=== PATIENT | female | born 1945 | race Caucasian/White ===

== ENCOUNTER → 2019-09-14 | Outpatient (CLI) | payer OTHER ==
[~2019-09-14] MED LIST: ALPHA LIPOIC A600 M1 PO; ASPIR 8181 M1 PO; ASPIR-TRIN325 MG PO; ATORVASTATIN CA40 MG PO; CHROMIUM200 MCG PO; EFFIENT10 MG PO; GLUCOSAMINE HC500 MG PO; LISINOPRIL5 MG PO; MAGOX 400400 MG PO; MSM-GLUCOSAMIN1 EACH PO; NEPHROCAPS SOFT1 CAP PO; NIACIN FLUSH F400 MG PO; NIACOR500 MG PO; NITROGLYCERIN0.4 MG SUBLING; RED YEAST RICE600 MG PO; TOPROL XL25 MG PO; TOPROL XL50 MG PO; TURMERIC500 MG PO
== END ==
LOC: M.CT 08-29 16:11
PROVIDERS: ATTEND Registered Nurse Diabetes Educator
DX: I65.21 Occlusion and stenosis of right carotid artery (principal); E11.9 Type 2 diabetes mellitus without complications; I10 Essential (primary) hypertension; R26.89 Other abnormalities of gait and mobility; R53.1 Weakness; R51 Headache

== ENCOUNTER → 2020-07-29 | Outpatient (CLI) | payer OTHER | LOC: M.RAD 09:38 | PROVIDERS: ATTEND Internal Medicine | DX: M47.816 Spondylosis without myelopathy or radiculopathy, lumbar region (principal); M48.061 Spinal stenosis, lumbar region without neurogenic claudication; M54.5 Low back pain ==

== ENCOUNTER 2021-02-10 11:52 | Inpatient (IN) | payer OTHER ==
[~2021-02-10] VITALS: Ht 162.6 cm; Wt 93.2 kg
[2021-02-10 12:10] VITALS: BP 133/50
[2021-02-10] MEDS ORDERED: ZETIA10 MG PO (12:19)
[2021-02-10 12:35] LABS: HEMOGLOBIN 13.3 gm/dL (12.0-15.0); WBC 11.1 thou/uL (4.0-11.0)
[2021-02-10 12:37] LABS: HEMATOCRIT 39.5 % (37.0-47.0); MCH 32.1 pg (26.0-34.0); MCHC 33.7 g/dL (28.0-37.0); MCV 95.3 fL (80.0-100.0); MPV 7.7 fl. (7.2-11.1); NUCLEATED RBCS 0 /100WBC; PLATELET COUNT* 213 thou/uL (150-400); RBC 4.14 mil/uL (4.20-5.00); RDW-CV 13.6 % (10.5-14.5)
[2021-02-10 12:51] LABS: CALCIUM 8.2 mg/dL (8.5-10.1); CREATININE 0.8 mg/dL (0.6-1.3); POTASSIUM 4.4 mmol/L (3.5-5.1)
--- NOTE | 2021-02-10 12:55 | EKG ---
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: [facility] : 1945 Requested By: George Carl Order Number: [id number] MD: Reilly Skinner Measurements Intervals [place] Rate: 83 P: 0 PA: 164 QRS: -19 QRSD: 92 T: -25 QT: 383 QTc: 450 Interpretive Statements Sinus rhythm artifact noted Borderline left axis deviation Low voltage, precordial leads Nonspecific repol abnormality, diffuse leads Compared to ECG 08/08/2014 07:36:05 no change Electronically Signed On 02-10-2021 12:55:26 CONVEYOR LOADER by Reilly Skinner [email or web address] <ELECTRONICALLY SIGNED> By: Reilly Skinner MD, FAC 02/10/21 1255 1220 1220 Reilly Skinner MD, [facility] /EPI
[2021-02-10 13:02] LABS: ALBUMIN 2.8 g/dL (3.4-5.0); TOTAL BILIRUBIN 0.5 mg/dL (<0.1-1.0); TOTAL PROTEIN 7.4 g/dL (6.4-8.2)
[2021-02-10 13:24] LABS: ABSOLUTE LYMPHOCYTES 1.6 thou/uL (0.8-5.3); ABSOLUTE MONOCYTES 1.6 thou/uL (0.0-1.2); PLATELET ESTIMATE ADEQUATE
[2021-02-10 16:35] VITALS: BP 138/80
--- NOTE | 2021-02-10 18:18 | NUR ---
PT'S REQUESTS SON TO BE REACHED AT [phone] FOR UPDATES
[2021-02-10 20:35] VITALS: BP 136/79
[2021-02-10 21:00] VITALS: BP 140/63
[2021-02-10] MEDS ORDERED: GLIPIZIDE 10 MG10 MG PO (21:25)
[2021-02-11 01:53] LABS: URINE BILIRUBIN NEGATIVE (Negative); URINE BLOOD 1+ (Negative); URINE CLARITY CLEAR; URINE COLOR YELLOW; URINE GLUCOSE-RANDOM 3+ (Negative); URINE KETONES NEGATIVE (Negative); URINE LEUKOCYTES NEGATIVE (Negative); URINE NITRITE NEGATIVE (Negative); URINE PROTEIN 1+ (Negative); URINE UROBILINOGEN 0.2 E.U./dl (0.2-1.0)
--- NOTE | 2021-02-11 01:59 | NUR ---
ASSUMED CARE OF PT AT 2100 FROM THE ER. PT IS ALERT AND ORIENTED. VSS. PERRLA. NO COMPLAINTS OF PAIN. PT IS ON 75 PERCENT HEATED HIGH FLOW. PT IS VERY UNSTABLE ON HER FEET. PT IS IN SINUS RYTHM ON THE TELEMETRY. PT IS RESTING COMFORTABLY IN BED. RESPIRATIONS ARE EVEN AND NONLABORED. WILL CONTINUE TO MONITOR PT.
[2021-02-11 04:00] VITALS: BP 111/40
[2021-02-11 05:00] LABS: COARSE GRANULAR CASTS 0-3 Few /LPF (None Seen); SQUAMOUS 4-10 Moderate /LPF (0-3)
[2021-02-11 05:01] LABS: BACTERIA None Seen /HPF (None Seen); CRYSTALS None Seen /LPF (None Seen); URINE RBC None Seen /HPF (0-2); URINE WBC 0-5 Rare /HPF (0-5)
[2021-02-11 05:58] LABS: HEMATOCRIT 35.5 % (37.0-47.0); HEMOGLOBIN 11.9 gm/dL (12.0-15.0); MCHC 33.7 g/dL (28.0-37.0); MPV 7.8 fl. (7.2-11.1); RBC 3.74 mil/uL (4.20-5.00); RDW-CV 13.4 % (10.5-14.5); WBC 10.3 thou/uL (4.0-11.0)
[2021-02-11 06:30] LABS: ALBUMIN 2.4 g/dL (3.4-5.0); CALCIUM 8.2 mg/dL (8.5-10.1); CREATININE 0.7 mg/dL (0.6-1.3); MAGNESIUM 2.4 mg/dL (1.8-2.4); POTASSIUM 4.3 mmol/L (3.5-5.1); TOTAL BILIRUBIN 0.3 mg/dL (<0.1-1.0); TOTAL PROTEIN 6.6 g/dL (6.4-8.2)
[2021-02-11 08:00] VITALS: BP 113/52
[2021-02-11 12:11] VITALS: BP 119/46
--- NOTE | 2021-02-11 13:15 | NUR ---
The patient is alert. SB on the monitor. 50% heated high flow. Up with assist to BSC. Call light within reach. Diet changed to Carb Control. Up with assistance.
--- NOTE | 2021-02-11 13:26 | 2DMMODE ---
[place] [address] 2 D/M-MODE ECHOCARDIOGRAM Name: SALTERJAISON Room: [address] IN [facility]#: [id number] Admission: 02/10/21 Attend Phys: Carina Mckenzie, Discharge: Date of : 41 Date of Service: 02/11/21 1326 Report #: [id number] THIS REPORT FOR: cc: Nba Hayden MD, Meng MD Liston, Michael J. MD [facility] ~ APPROVED REPORT Study performed: 02/11/2021 09:38:05 EXAM: Comprehensive 2D, Doppler, and color-flow Echocardiogram Patient Location: In-Patient Room #: [facility] Status: routine BSA: 1.96 HR: 56 bpm BP: 111/40 mmHg Rhythm: NSR Other Information Study Quality: Good Indications resp failure 2D Dimensions IVSd: 11.02 (7-11mm) LVOT Diam: 19.51 (18-24mm) LVDd: 47.97 mm PWd: 10.14 (7-11mm) Ascending Ao: 32.49 (22-36mm) LVDs: 27.41 (25-40mm) Aortic Root: 27.84 mm Volumes Left Atrial Volume (Systole) LA ESV Index: 29.10 mL/m2 Aortic Valve AoV Peak Delbert.: 1.88 m/s AO Peak Gr.: 14.17 mmHg LVOT Max P.81 mmHg AO Mean Gr.: 8.44 mmHg LVOT Mean P.02 mmHg LVOT Max V: 1.10 m/s AO V2 VTI: 47.35 cm LVOT Mean V: 0.64 m/s ANNETTA (VTI): 1.74 cm2 LVOT V1 VTI: 27.61 [place] [address] 2 D/M-MODE ECHOCARDIOGRAM Name: JAISON SALTER Room: [address] IN ..#: [id number] Admission: 02/10/21 Attend Phys: Carina Mckenzie, Discharge: Date of : 41 Date of Service: 02/11/21 1326 Report #: [id number] Mitral Valve E/A Ratio: 1.00 MV Decel. Time: 242.42 ms MV E Max Delbert.: 1.19 m/s MV PHT: 70.30 ms MVA (PHT): 3.13 cm2 TDI Medial E' Delbert.: 0.08 m/s Lateral E' Delbert.: 0.08 m/s Pulmonary Valve PV Peak Delbert.: 0.87 m/s PV Peak Gr.: 3.03 mmHg Left Ventricle The left ventricle is normal size. There is normal LV segmental wall motion. There is normal left ventricular wall thickness. Left ventricular systolic function is normal. LVEF is 60-65%. Transmitral Doppler flow pattern suggests impaired LV relaxation. Right Ventricle The right ventricle is normal size. The right ventricular systolic function is normal. Atria The left atrium size is normal. The right atrium size is normal. Aortic Valve Mild aortic valve sclerosis. No aortic regurgitation is present. Mild aortic stenosis. Mitral Valve The mitral valve is normal in structure. Mild mitral regurgitation. No evidence of mitral valve stenosis. Tricuspid Valve The tricuspid valve is normal in structure. Unable to assess PA pressure. Trace tricuspid regurgitation. Pulmonic Valve The pulmonary valve is normal in structure. There is no pulmonic valvular regurgitation. Great Vessels The aortic root is normal in size. IVC [place] [address] 2 D/M-MODE ECHOCARDIOGRAM Name: JAISON SALTER Room: [address]#: [id number] Admission: 02/10/21 Attend Phys: Carina Mckenzie, Discharge: Date of : 41 Date of Service: 02/11/21 1326 Report #: [id number] collapses >50% with inspiration. Pericardium There is no pericardial effusion. <Conclusion> The left ventricle is normal size. There is normal left ventricular wall thickness. Left ventricular systolic function is normal. LVEF is 60-65%. Transmitral Doppler flow pattern suggests impaired LV relaxation. Mild aortic valve sclerosis. Mild aortic stenosis. Mild mitral regurgitation. IVC is normal in size and collapses >50% with inspiration. <ELECTRONICALLY SIGNED> By: Navi Ibarra MD, FACC 02/11/211325 25 25 Navi Ibarra MD, FACC /INF
--- NOTE | 2021-02-11 14:14 | CON ---
[address] [address] CONSULTATION Name: JAISON SALTER Room: [address] IN .R.#: [id number] Admission: 02/10/21 Attend Phys: Carina Mckenzie MD Discharge: Date of : 41 Report #: [id number] THIS REPORT FOR: cc: Nba Hayden MD, Meng MD Pervez, Adeel MD ~ DATE OF CONSULTATION: 02/11/[address] Mckenzie. INDICATION FOR CONSULTATION: Acute hypoxemic respiratory failure secondary to COVID-19. HISTORY OF PRESENT ILLNESS: This is a 75-year-old female, past medical history includes a history of coronary artery disease as well as diabetes. She has coronary artery stent. I do not see any mention of congestive heart failure on the record. I do not have recent measure of her left ventricular ejection fraction available. The patient is reported to be a lifetime nonsmoker. She is reported to have had 2 doses of COVID-19 vaccine, she says around October and November. The patient is now admitted with acute respiratory complaints of short of breath. His coughing has been of small amount of sputum. Mild swelling of lower extremities, has had nasal congestion as well as headache as well. Currently, is requiring 75% FiO2 with a heated high-flow nasal cannula to maintain O2 saturations. She reports having had fever and chills as well as weakness and poor appetite recently. The patient, however, is sitting comfortably on side of bed and does not appear to be in any distress at this time. REVIEW OF SYSTEMS: For 12 points is negative except as mentioned above. PAST MEDICAL HISTORY: Coronary artery disease status post stent, diabetes, neuropathy, osteoarthritis, hypertension, hysterectomy. SOCIAL HISTORY: Lifetime nonsmoker. No known history of heavy alcohol use or illegal drug use. CURRENT MEDICATIONS: List in [facility] reviewed. HOME MEDICATIONS: List in [facility] reviewed. ALLERGIES: CODEINE. PHYSICAL EXAMINATION: [place] [address] CONSULTATION Name: JAISON SALTER Room: [address] IN [facility]#: [id number] Admission: 02/10/21 Attend Phys: Carina Mckenzie MD Discharge: Date of : 41 Report #: [id number] GENERAL: Alert, awake and oriented. VITAL SIGNS: Pulse 56, blood pressure 119/46. She is on 75% FiO2, O2 saturation mid 90s on a heated high-flow nasal cannula, afebrile. HEENT: Head is normocephalic and atraumatic. NECK: Does not show raised JVP. CHEST: Breath sounds bilaterally equal. No added sounds. HEART: Regular. No murmur. ABDOMEN: Soft, nontender. EXTREMITIES: Lower extremities, 1+ edema, no calf tenderness. LABORATORY DATA: Lab work and x-rays are in [facility] and these are reviewed. ASSESSMENT AND PLAN: 1. Acute hypoxemic respiratory failure secondary to COVID-19. Continue to titrate oxygen. She may have underlying obstructive sleep apnea. We will have a low threshold of using BiPAP. In case her respiratory status declines, avoid supine sleep. 2. COVID-19. Agree with dexamethasone as well as remdesivir, dexamethasone dose is increased. 3. Pulmonary infiltrates. Agree with ceftriaxone and doxycycline. More cultures and serologies are ordered. 4. Bronchospasm. She reported to have wheezing earlier. Heart rate now on the lower side. Therefore, I switched nebulized bronchodilators over to DuoNeb. 5. Diabetes. I would expect a rise in glucose. Therefore, I have for now increased the insulin sliding scale to moderate dose, may need more insulin. 6. Evaluation for thromboembolic phenomena. CTA chest is awaited. We will do venous Dopplers as well. In addition, we will do a 2D echo. 7. Mild fluid overload. Considering that she will be getting IV dye today, I did not order Lasix. We will reassess tomorrow and consider. 8. Deep venous thrombosis prophylaxis. The patient currently is on 60 mg of Lovenox at bedtime. Thromboembolic workup as above. We will then review Lovenox dose. 9. Gastrointestinal prophylaxis, Protonix. 10. Clostridium difficile prophylaxis, Lactinex. Thanks for this consultation. <ELECTRONICALLY SIGNED> By: Gustavo Cordova MD 02/11/21 1414 1149 1240Gustavo Cordova MD /nt
--- NOTE | 2021-02-11 14:18 | NUR ---
CM ASSESSMENT CALLS TO PT ROOM UNANSWERED. ASSESSMENT COMPLETED VIA PHONE WITH PT'S (KAYLA SALTER [phone]). PT LIVES AT HOME WITH . PT HAS FLIGHT OF STAIRS IN HOME, BUT ONLY UTILIZES THE GROUND FLOOR. PT USES A CANE ON OCCASION. PT INDEPENDENT WITH ADLS. PT'S UNCLEAR IF PT EVER WENT TO REHAB OR SKILLED. PT HAS NO HH HX. CM TO FOLLOW.
[2021-02-11 16:04] VITALS: BP 135/66
[2021-02-11 20:30] VITALS: BP 142/56
[2021-02-12] VITALS: BP 135/57
--- NOTE | 2021-02-12 05:08 | NUR ---
PT C/O INSOMNIA SINCE 02-09-21. PT WAS GIVEN DIPHENHYDRAMINE PRESCRIBED. PT REPORTED "TAKING A SMALL NAP AND THEN WOKE UP." PER MEDICATION ORDER A SECOND DOSE OF DIPHENHYDRAMINE WAS ADMINISTERED. PT WAS PROVIDED WITH A DARK AND QUIET ENVIRONMENT W/ MINIMAL INTERUPTIONS. PT WAS ABLE TO SLEEP MOST OF THE LATTER MORNING. NO ACUTE CHANGES THIS SHIFT. WILL CONT. TO MONITOR.
[2021-02-12 06:00] VITALS: BP 132/62
[2021-02-12 06:30] LABS: ABSOLUTE LYMPHOCYTES 0.7 thou/uL (0.8-5.3); ABSOLUTE MONOCYTES 0.9 thou/uL (0.0-1.2); ABSOLUTE NEUTROPHILS 13.6 thou/uL (1.6-8.1); BASOPHILS 0.2 %; HEMATOCRIT 36.6 % (37.0-47.0); LYMPHOCYTES 4.7 %; MCH 31.4 pg (26.0-34.0); MCHC 32.7 g/dL (28.0-37.0); MCV 96.1 fL (80.0-100.0); MPV 8.5 fl. (7.2-11.1); NUCLEATED RBCS 0 /100WBC; PLATELET COUNT* 246 thou/uL (150-400); POLYS 89.1 %; RBC 3.81 mil/uL (4.20-5.00); RDW-CV 13.2 % (10.5-14.5); WBC 15.2 thou/uL (4.0-11.0)
[2021-02-12 06:39] LABS: ALBUMIN 2.4 g/dL (3.4-5.0); CALCIUM 8.4 mg/dL (8.5-10.1); CREATININE 0.7 mg/dL (0.6-1.3); MAGNESIUM 2.5 mg/dL (1.8-2.4); POTASSIUM 4.5 mmol/L (3.5-5.1); TOTAL BILIRUBIN 0.2 mg/dL (<0.1-1.0); TOTAL PROTEIN 6.5 g/dL (6.4-8.2)
[2021-02-12 08:00] VITALS: BP 138/60
[2021-02-12 13:30] VITALS: BP 147/73
--- NOTE | 2021-02-12 15:07 | NUR ---
CM FOLLOWUP PT NOT MEDICALLY CLEAR. PT WITH INCREASING O2 NEEDS. PT DECLINING REFERRAL TO SKILLED OR REHAB SERVICES. PT REQUESTING REFERRAL FOR HH WITH PT AND OT SERVICES. CM TO FOLLOW.
[2021-02-12 17:06] VITALS: BP 139/56
[2021-02-12 20:00] VITALS: BP 135/55
[2021-02-13] VITALS: BP 145/51
[2021-02-13 04:36] VITALS: BP 130/58
[2021-02-13 05:03] LABS: HEMATOCRIT 37.1 % (37.0-47.0); HEMOGLOBIN 12.2 gm/dL (12.0-15.0); MCH 31.6 pg (26.0-34.0); MCHC 32.9 g/dL (28.0-37.0); MPV 8.2 fl. (7.2-11.1); RBC 3.86 mil/uL (4.20-5.00); RDW-CV 12.9 % (10.5-14.5); WBC 13.1 thou/uL (4.0-11.0)
--- NOTE | 2021-02-13 05:08 | NUR ---
ASSUMED PT CARE AT APPROX 1930. PT IS AWAKE AND ORIENTED X4. PT IS TRACING SR/SB ON THE PLASTIC TILE SETTER. PT IS ON 55L OF O2/75% FIO2 VIA HEATED HIGHFLOW NASAL CANNULA.PT IS STILL SHORT OF BRREATH AND DESATURATES TO THE UPPER 80s WITH ACTIVITY. NO ACUTE CHANGES OVERNIGHT. PT IS ABLE TO REST MOST OF THE NIGHT. CALL LIGHT WITHIN REACH. HOURLY ROUNDING DONE FOR PT SAFETY. FALL PRECAUTIONS IN PLACE.
[2021-02-13 06:18] LABS: ALBUMIN 2.4 g/dL (3.4-5.0); CALCIUM 8.5 mg/dL (8.5-10.1); CREATININE 0.7 mg/dL (0.6-1.3); MAGNESIUM 2.5 mg/dL (1.8-2.4); POTASSIUM 4.9 mmol/L (3.5-5.1); TOTAL BILIRUBIN 0.2 mg/dL (<0.1-1.0); TOTAL PROTEIN 6.4 g/dL (6.4-8.2)
[2021-02-13 08:00] VITALS: BP 145/83
[2021-02-13 12:00] VITALS: BP 156/55
--- NOTE | 2021-02-13 14:18 | NUR ---
CM FOLLOWUP PT NOT YET MEDICALLY CLEAR. UPON CLEARANCE, THE PLAN IS FOR PT TO DC HOME WITH SPOUSE WITH HH SERVICES. HH AGENCY PENDING. CM TO FOLLOW.
[2021-02-13 16:00] VITALS: BP 135/56
[2021-02-13 20:15] VITALS: BP 146/58
[2021-02-14] VITALS: BP 131/45
[2021-02-14 04:00] VITALS: BP 158/52
[2021-02-14 04:00] LABS: HEMATOCRIT 38.4 % (37.0-47.0); HEMOGLOBIN 12.7 gm/dL (12.0-15.0); MCH 31.4 pg (26.0-34.0); MCHC 33.1 g/dL (28.0-37.0); MCV 94.7 fL (80.0-100.0); MPV 8.2 fl. (7.2-11.1); RBC 4.06 mil/uL (4.20-5.00); RDW-CV 12.7 % (10.5-14.5); WBC 13.3 thou/uL (4.0-11.0)
[2021-02-14 04:43] LABS: ALBUMIN 2.5 g/dL (3.4-5.0); CALCIUM 8.5 mg/dL (8.5-10.1); CREATININE 0.7 mg/dL (0.6-1.3); MAGNESIUM 2.4 mg/dL (1.8-2.4); POTASSIUM 4.6 mmol/L (3.5-5.1); TOTAL BILIRUBIN 0.2 mg/dL (<0.1-1.0); TOTAL PROTEIN 6.4 g/dL (6.4-8.2)
--- NOTE | 2021-02-14 05:29 | NUR ---
PT AO X4 ON HHF PER NC 50L AT 75% SATTING APPROPRIATELY OVERNIIGHT. RT FOOT IS BRUISED BETWEEN 1-2 TOES WITH NO COMPLAINT OF PAIN. PT TO BSC INDEPENDENTLY WITHOUT ISSUE. PT MAKES NEEDS KNOWN WITH HOURLY ROUNDING, CALL LIGHT IN REACH FOR PT SAFETY
--- NOTE | 2021-02-14 07:20 | NUR ---
CHANGE OF SHIFT REPORT GIVEN PATIENT SEEN AT BEDSIDE, IN BED ASLEEP ASSUMED PATIENT CARE
[2021-02-14 08:00] VITALS: BP 130/62
[2021-02-14 12:45] VITALS: BP 153/76
--- NOTE | 2021-02-14 15:59 | NUR ---
patient transferred to 210 verbal report given to too hill patient and belongigns transferred via bed family notified of transfer
--- NOTE | 2021-02-14 18:50 | NUR ---
CM FOLLOWUP PT OUT OF ISOLATION, BUT NOT YET MED CLEAR. PT EXPECTED TO REMAIN AT [facility] TH[facility]OUGH [place]. WHEN CLEAR, PT TO DC HOME WITH HH VIA [place] [phone]. CM TO FOLLOW.
--- NOTE | 2021-02-14 20:08 | NUR ---
ASSUMED CARE OF TRANSFER PT AROUND 1630 FROM [facility]. CONCUR WITH DOCUMENTED ASSESSMENTS BY ABOVE NURSE. CALL LIGHT AND PERSONAL BELONGINGS PLACED WITHIN REACH. PT. IN BED, WATCHING TV, IN STABLE CONDITION, AT SHIFT CHANGE.
[2021-02-14 20:15] VITALS: BP 137/62
[2021-02-15] VITALS: BP 146/55
[2021-02-15 04:00] VITALS: BP 131/38
[2021-02-15 04:49] LABS: HEMATOCRIT 39.8 % (37.0-47.0); HEMOGLOBIN 13.3 gm/dL (12.0-15.0); MCH 31.3 pg (26.0-34.0); MCHC 33.4 g/dL (28.0-37.0); MCV 93.7 fL (80.0-100.0); MPV 8.3 fl. (7.2-11.1); NUCLEATED RBCS 0 /100WBC; PLATELET COUNT* 323 thou/uL (150-400); RBC 4.25 mil/uL (4.20-5.00); RDW-CV 12.8 % (10.5-14.5); WBC 14.7 thou/uL (4.0-11.0)
[2021-02-15 05:03] LABS: ALBUMIN 2.7 g/dL (3.4-5.0); CALCIUM 8.6 mg/dL (8.5-10.1); CREATININE 0.8 mg/dL (0.6-1.3); POTASSIUM 3.9 mmol/L (3.5-5.1); TOTAL BILIRUBIN 0.3 mg/dL (<0.1-1.0); TOTAL PROTEIN 6.8 g/dL (6.4-8.2)
[2021-02-15 06:25] LABS: ABSOLUTE LYMPHOCYTES 1.9 thou/uL (0.8-5.3); ABSOLUTE MONOCYTES 0.9 thou/uL (0.0-1.2); ABSOLUTE NEUTROPHILS 11.9 thou/uL (1.6-8.1); METAMYELOCYTES 2 %
[2021-02-15 06:26] LABS: PLATELET ESTIMATE ADEQUATE
[2021-02-15 09:00] VITALS: BP 117/47
[2021-02-15 12:00] VITALS: BP 140/57
[2021-02-15 16:00] VITALS: BP 151/72
[2021-02-15 20:04] VITALS: BP 140/66
[2021-02-16 00:30] VITALS: BP 149/63
[2021-02-16 04:00] VITALS: BP 158/58
[2021-02-16 05:10] LABS: ABSOLUTE BASOPHILS 0.1 thou/uL (0.0-0.2); ABSOLUTE LYMPHOCYTES 0.9 thou/uL (0.8-5.3); ABSOLUTE NEUTROPHILS 14.4 thou/uL (1.6-8.1); BASOPHILS 0.7 %; HEMATOCRIT 41.6 % (37.0-47.0); LYMPHOCYTES 5.5 %; MCH 31.6 pg (26.0-34.0); MCHC 33.5 g/dL (28.0-37.0); MCV 94.1 fL (80.0-100.0); NUCLEATED RBCS 0 /100WBC; PLATELET COUNT* 345 thou/uL (150-400); POLYS 87.8 %; RBC 4.42 mil/uL (4.20-5.00); RDW-CV 12.7 % (10.5-14.5); WBC 16.4 thou/uL (4.0-11.0)
[2021-02-16 05:42] LABS: ALBUMIN 2.8 g/dL (3.4-5.0); CALCIUM 8.5 mg/dL (8.5-10.1); CREATININE 0.8 mg/dL (0.6-1.3); MAGNESIUM 2.3 mg/dL (1.8-2.4); POTASSIUM 4.2 mmol/L (3.5-5.1); TOTAL BILIRUBIN 0.4 mg/dL (<0.1-1.0); TOTAL PROTEIN 6.9 g/dL (6.4-8.2)
[2021-02-16 09:00] VITALS: BP 139/64
[2021-02-16 12:00] VITALS: BP 144/67
[2021-02-16 16:00] VITALS: BP 139/61
[2021-02-16 20:20] VITALS: BP 164/62
[2021-02-17 04:27] LABS: ABSOLUTE BASOPHILS 0.2 thou/uL (0.0-0.2); ABSOLUTE LYMPHOCYTES 0.9 thou/uL (0.8-5.3); ABSOLUTE MONOCYTES 1.2 thou/uL (0.0-1.2); ABSOLUTE NEUTROPHILS 14.1 thou/uL (1.6-8.1); BASOPHILS 1.2 %; HEMATOCRIT 41.3 % (37.0-47.0); HEMOGLOBIN 13.6 gm/dL (12.0-15.0); LYMPHOCYTES 5.2 %; MCH 31.2 pg (26.0-34.0); MCHC 32.9 g/dL (28.0-37.0); MCV 94.9 fL (80.0-100.0); MONOCYTES 7.1 %; MPV 8.6 fl. (7.2-11.1); NUCLEATED RBCS 0 /100WBC; PLATELET COUNT* 311 thou/uL (150-400); POLYS 86.5 %; RBC 4.35 mil/uL (4.20-5.00); RDW-CV 12.8 % (10.5-14.5); WBC 16.3 thou/uL (4.0-11.0)
[2021-02-17 04:45] LABS: CALCIUM 8.3 mg/dL (8.5-10.1); CREATININE 0.7 mg/dL (0.6-1.3); MAGNESIUM 2.4 mg/dL (1.8-2.4); POTASSIUM 4.3 mmol/L (3.5-5.1)
[2021-02-17 05:49] VITALS: BP 131/64
[2021-02-17 08:43] VITALS: BP 135/64
[2021-02-17 12:00] VITALS: BP 133/51
[2021-02-17 16:00] VITALS: BP 127/54
--- NOTE | 2021-02-17 17:14 | NUR ---
PLAN OF CARE: PLAN REMAINS FOR THE PT TO D/C HOME WITH HH WHEN MEDICALLY STABLE. PT REMAINS IN 15L O2 AT THIS TIME, AND MAY NEED HOME O2 AT D/C. CM WILL REMAIN AVAILABLE TO ASSIST AND FOLLOW NEEDED.
--- NOTE | 2021-02-17 18:46 | NUR ---
TITRATED FROM 15L HFNC TO 8L THIS SHIFT. ABLE TO AMBULATE TO COMMODE BY SELF. PT PERFORMED INCENTIVE SPIROMETER 10X/HR AFTER EDUCATION.
[2021-02-17 20:23] VITALS: BP 140/85
[2021-02-18 00:43] VITALS: BP 136/62
[2021-02-18 04:23] LABS: PLATELET COUNT* 282 thou/uL (150-400); WBC 15.9 thou/uL (4.0-11.0)
[2021-02-18 04:30] LABS: HEMATOCRIT 39.8 % (37.0-47.0); HEMOGLOBIN 13.1 gm/dL (12.0-15.0); MCH 31.5 pg (26.0-34.0); MCHC 32.9 g/dL (28.0-37.0); MCV 95.8 fL (80.0-100.0); MPV 8.4 fl. (7.2-11.1); NUCLEATED RBCS 0 /100WBC; RBC 4.16 mil/uL (4.20-5.00); RDW-CV 12.9 % (10.5-14.5)
[2021-02-18 04:38] LABS: ALBUMIN 2.5 g/dL (3.4-5.0); CALCIUM 8.3 mg/dL (8.5-10.1); CREATININE 0.8 mg/dL (0.6-1.3); POTASSIUM 4.3 mmol/L (3.5-5.1); TOTAL BILIRUBIN 0.3 mg/dL (<0.1-1.0); TOTAL PROTEIN 6.1 g/dL (6.4-8.2)
[2021-02-18 04:40] VITALS: BP 146/54
[2021-02-18 05:49] LABS: ABSOLUTE LYMPHOCYTES 1.1 thou/uL (0.8-5.3); ABSOLUTE MONOCYTES 2.4 thou/uL (0.0-1.2); ABSOLUTE NEUTROPHILS 12.4 thou/uL (1.6-8.1); PLATELET ESTIMATE ADEQUATE
[2021-02-18 08:00] VITALS: BP 140/54
[2021-02-18 11:34] VITALS: BP 113/58
[2021-02-18 16:10] VITALS: BP 129/55
[2021-02-18 20:00] VITALS: BP 137/57
[2021-02-19] VITALS: BP 159/61
[2021-02-19 04:00] VITALS: BP 152/57
[2021-02-19 04:43] LABS: ABSOLUTE LYMPHOCYTES 0.9 thou/uL (0.8-5.3); ABSOLUTE MONOCYTES 1.1 thou/uL (0.0-1.2); ABSOLUTE NEUTROPHILS 12.4 thou/uL (1.6-8.1); BASOPHILS 0.1 %; HEMOGLOBIN 13.6 gm/dL (12.0-15.0); LYMPHOCYTES 6.1 %; MCH 31.4 pg (26.0-34.0); MCHC 32.3 g/dL (28.0-37.0); MCV 97.3 fL (80.0-100.0); MONOCYTES 7.7 %; MPV 8.6 fl. (7.2-11.1); NUCLEATED RBCS 0 /100WBC; PLATELET COUNT* 253 thou/uL (150-400); POLYS 86.1 %; RBC 4.32 mil/uL (4.20-5.00); RDW-CV 13.3 % (10.5-14.5); WBC 14.4 thou/uL (4.0-11.0)
[2021-02-19 05:01] LABS: ALBUMIN 2.6 g/dL (3.4-5.0); CALCIUM 8.3 mg/dL (8.5-10.1); CREATININE 0.6 mg/dL (0.6-1.3); MAGNESIUM 2.6 mg/dL (1.8-2.4); PHOSPHORUS* 4.4 mg/dL (2.5-4.9); POTASSIUM 4.2 mmol/L (3.5-5.1); TOTAL BILIRUBIN 0.4 mg/dL (<0.1-1.0); TOTAL PROTEIN 6.2 g/dL (6.4-8.2)
[2021-02-19 08:00] VITALS: BP 106/45
--- NOTE | 2021-02-19 10:15 | NUR ---
PLAN OF CARE:
--- NOTE | 2021-02-19 10:24 | NUR ---
PLAN OF CARE: PLAN REMAINS FOR THE PT TO D/C HOME WITH HH WITH [facility] WHEN PT MEDICALLY STABLE. PT REMAINS ON 7L O2 VIA NC AT THIS TIME, AND MAY NEED HOME O2 AT D/C PENDING R.T. REST AND EX OX PRIOR TO D/C. CM WILL REMAIN AVAILABLE TO ASSIST AND FOLLOW NEEDED.
[2021-02-19 11:45] VITALS: BP 153/56
--- NOTE | 2021-02-19 13:29 | NUR ---
Nutrition: Pt admitted with COVID/ARDS. Spoke with RN. Pt is on hi-grant O2. Assessed for LOS today. Wt: 205#. Per RN, pt is eating meals well. +BM yday. Meds: insuliln, l. acidophilus. H/o DM, OA, HTN. Labs: BG 139-275, alb 2.6, prealb 25.7. Appears at low nutrition risk.
[2021-02-19 16:00] VITALS: BP 121/47
--- NOTE | 2021-02-19 18:37 | NUR ---
PT AMBULATED IN ROOM MULTIPLE TIMES TODAY-TOLERATED WELL. PT SAT UP IN RECLINER FOR ALL MEALS. TOLERATED WELL. DENIES ANY PAIN. REMAINS ON 7L HFNC SAT MID 90'S. AM ASSESSMENT CHARTED. MEDS PER MAR. CALL LIGHT WITHIN REACH. WILL CONTINUE PLAN OF CARE.
[2021-02-19 20:40] VITALS: BP 112/42
[2021-02-20] VITALS: BP 114/51
[2021-02-20 04:00] VITALS: BP 138/42
[2021-02-20 07:45] VITALS: BP 133/83
--- NOTE | 2021-02-20 08:09 | NUR ---
PATIENT HAS RESTED WELL THROUGHOUT THE NIGHT. VSS ON 7L 02 VIA NASAL CANNULA. MEDICATIONS GIVEN ORDERED AND CHARTED. IV IN LEFT FOREARM-SL. PATIENT INSTRUCTED TO USE CALL LIGHT WHEN NEEDING ASSISTANCE. HOURLY ROUNDS MADE. WILL CONINUE WITH PLAN OF CARE AND NURSING TO MONITOR.
[2021-02-20 11:37] VITALS: BP 127/46
[2021-02-20] MEDS ORDERED: DEXAMETHASO0.1 MG/M1 IVPUSH (13:24)
[2021-02-20] MEDS ORDERED: COMBIVENT RESPIM4 GM INH (13:36)
[2021-02-20] MEDS ORDERED: DEXAMETHASONE1 MG PO (13:36)
[2021-02-20] MEDS ORDERED: GABAPENTIN 100100 MG PO (13:36)
[2021-02-20] MEDS ORDERED: MAXIMUM D3325 MCG PO (13:36)
[2021-02-20 13:50] VITALS: BP 127/46
[2021-02-20 13:57] VITALS: BP 127/46
--- NOTE | 2021-02-20 15:42 | NUR ---
DISCHARGE ORDERS RECEIVED. DISCHARGE INSTRUCTIONS, CARE NOTES, E SCRIPTS AND FOLLOW UP APPTS GIVEN TO PT. PT COMMUNICATES UNDERSTANDING OF DISCHARGE TEACHING. IV AND MCAT TUTOR REMOVED. PT DISCHARGED WITH ALL BELONGINGS,0XYGEN AND PAPERWORK VIA WHEELCHAIR WITH NURSING STAFF TO SPOUSE OWN PERSONAL VEHICLE. PT DISCHARGED TO HOME WITH HOME HEALTH
--- NOTE | 2021-02-20 16:38 | NUR ---
PHYSICIAN INFORMS OF PLAN TO D/C THE PT HOME WITH SELF-CARE, AND HOME OXYGEN. HOME O2 ARRANGED WITH [facility]. PT REQUIRES 2L O2 @ REST AND 4L O2 WITH ACTIVITY. NO OTHER CM D/C PLANNING NEEDS ANTICIPATED. CM WILL REMAIN AVAILABLE TO ASSIST AND FOLLOW NEEDED. [facility] PHONE: [phone]
== END 2021-02-20 15:45 | disposition home health service (06) | DRG 177 ==
LOC: M.ERS 11:52 → M.ORTHSURG 12:57 → M.TBA-ER 12:57 → M.ORTHSURG 20:20 → M.2W 02-14 16:20
PROVIDERS: Family Medicine; Internal Medicine; Internal Medicine Critical Care Medicine; ADMIT Internal Medicine; ATTEND Internal Medicine
PROC: XW033E5 Introduction of Remdesivir Anti-infective into Peripheral Vein, Percutaneous Approach, New Technology Group 5 (ICD-10-PCS; principal; 2021-02-12)
PROC: 5A0945A Assistance with Respiratory Ventilation, 24-96 Consecutive Hours, High Flow/Velocity Cannula (ICD-10-PCS; 2021-02-12)
PROC: 5A0935A Assistance with Respiratory Ventilation, Less than 24 Consecutive Hours, High Flow/Velocity Cannula (ICD-10-PCS; 2021-02-15)
PROC: 5A0935A Assistance with Respiratory Ventilation, Less than 24 Consecutive Hours, High Flow/Velocity Cannula (ICD-10-PCS; 2021-02-16)
PROC: 5A0935A Assistance with Respiratory Ventilation, Less than 24 Consecutive Hours, High Flow/Velocity Cannula (ICD-10-PCS; 2021-02-17)
PROC: 5A0935A Assistance with Respiratory Ventilation, Less than 24 Consecutive Hours, High Flow/Velocity Cannula (ICD-10-PCS; 2021-02-18)
PROC: 5A0935A Assistance with Respiratory Ventilation, Less than 24 Consecutive Hours, High Flow/Velocity Cannula (ICD-10-PCS; 2021-02-19)
PROC: 5A0935A Assistance with Respiratory Ventilation, Less than 24 Consecutive Hours, High Flow/Velocity Cannula (ICD-10-PCS; 2021-02-20)
DX: U07.1 COVID-19 (principal); J12.89 Other viral pneumonia; J96.01 Acute respiratory failure with hypoxia; J12.82 Pneumonia due to coronavirus disease 2019; Z88.8 Allergy status to other drugs, medicaments and biological substances; I10 Essential (primary) hypertension; E78.5 Hyperlipidemia, unspecified; M19.90 Unspecified osteoarthritis, unspecified site; E11.40 Type 2 diabetes mellitus with diabetic neuropathy, unspecified; Z79.4 Long term (current) use of insulin; E87.70 Fluid overload, unspecified; Z90.710 Acquired absence of both cervix and uterus; I25.10 Atherosclerotic heart disease of native coronary artery without angina pectoris